=== PATIENT | female | born 2000 | race Caucasian/White ===

== ENCOUNTER 2022-03-28 14:21 | Emergency (ER) | payer MEDICAID, SELFPAY ==
[2022-03-28 15:04] VITALS: BP 121/78; PULSE 82; RESP 19; TEMP 36.6; O2SAT 98; BMI 20.9
--- NOTE | 2022-03-28 15:41 | ED_ITS ---
HPI - Eye Problem General: Chief complaint: Eye Problems Stated complaint: eye irritation Time Seen by Provider: 03/28/22 15:13 History of Present Illness: Patient is a 22-year-old female comes to the ED with eye irritation. 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 She does not wear contacts and had some blue eye colored contacts at home that she used in her eyes for Halloween. She wore them for several hours last night. She did not use any contact lens cleaning solution on contacts before putting them in. Her eyes started getting red and hurting and she removed contacts from eyes. She now has right eye pain, redness and states that she is having some drainage out of her right eye. Right eye hurts more than her left eye. She rates her pain currently 9 out of 10. Eye pain worsens with light. Denies any vision changes. Patient does not wear any contacts or glasses. Associated symptoms: Denies fever(s), headache(s), nausea, neck pain or vomiting Review of Systems Const: Denies: fever(s), chills or fatigue Eyes: Reports: photophobia, eye discomfort (Both eyes), eye discharge (Both eyes) and eye redness (Both eyes); Denies: change in vision ENMT: Denies: throat pain, odynophagia, nasal discharge or nasal congestion Card: Denies: chest pain, palpitations, edema, swelling of feet/ankles, dyspnea on exertion or orthopnea Resp: Denies: dyspnea, productive cough or non-productive cough GI: Denies: abdominal pain, nausea, vomiting, diarrhea, constipation or hematochezia : Denies: flank pain, dysuria or hematuria Musc: Denies: neck pain, back pain or extremity swelling Skin/Breast: Denies: rash or new lesions Neuro: Denies: headache(s), numbness in extremities or weakness in extremities PFS ED PFSH: Medical History No pertinent family history Surgical History No pertinent past surgical history Social History Smoking and tobacco status: current every day smoker Physical Exam Const: COMMON NORMALS: patient oriented x3 and alert GENERAL APPEARANCE: cooperative HENMT: COMMON NORMALS: normocephalic HEAD & SCALP: normocephalic MOUTH: Normal oral and palatal mucosa present THROAT: posterior oropharynx normal and uvula midline Eye: COMMON NORMALS: Equal, round and reactive pupils present CONJUNCTIVA: Yes conjunctival abnormal positive bilateral conjunctival injection diffuse PUPIL: Yes Equal, round and reactive pupils present Neck/C-Spine: COMMON NORMALS: supple GENERAL: Yes normal visual inspection Resp: COMMON NORMALS: normal respiratory effort, No retractions, No use of accessory muscles and clear to auscultation bilaterally AUSCULTATION: clear to auscultation bilaterally Cardio: COMMON NORMALS: regular rate, regular rhythm, S1 normal heart sound present, S2 normal heart sound present, No gallops present (Cardio), No clicks present (Cardio), No murmurs present (Cardio) and Peripheral pulses 2+ throughout RATE: regular rate RHYTHM: regular rhythm HEART SOUNDS: S1 normal heart sound present and S2 normal heart sound present PERIPHERAL PULSES: Peripheral pulses 2+ throughout GI: COMMON NORMALS: Normal to inspection, nondistended, normoactive bowel sounds present, Soft to palpation, non-tender and no masses PALPATION: Yes Soft to palpation : COMMON NORMALS: Yes no CVA tenderness BLADDER/KIDNEY EXAM: Yes no CVA tenderness Back/Pelvis: COMMON NORMALS: no CVA tenderness Extremity: COMMON NORMALS: normal to inspection Neuro: COMMON NORMALS: patient oriented x3 SENSORIUM/ORIENTATION: Yes alert GAIT: Yes Normal gait present Skin: GENERAL SKIN EXAM: dry skin Course Vital Signs: Vital signs: Vital Signs Temperature 97.8 F 03/28/22 16:46 Pulse Rate 72 03/28/22 16:46 Respiratory Rate 16 03/28/22 16:46 Blood Pressure 103/66 03/28/22 16:46 Pulse Oximetry 97 03/28/22 16:46 Oxygen Delivery Me thod 03/28/22 15:04 MDM - Eye Problem Medical Decision Making Patient is a 22-year-old female who has conjunctivitis. She was given a dose of Maxitrol eyedrops discharged home with a prescription for Maxitrol eyedrops. She was given [facility] contact information told to follow-up with them in the next 48 hours for reevaluation. She is given strict return to ED precautions. Patient understood and agreed with plan. Discharge Plan Discharge Patient Disposition: Home Clinical Impression: Acute bacterial conjunctivitis Qualifiers: Laterality: right Qualified Code(s): H10.31 - Unspecified acute conjunctivitis, right eye Condition: Stable Prescriptions: New Maxitrol 3.5mg/mL-10,000 unit/mL-0.1 % drops,suspension 1 drp ophthalmic (eye) Q6H 7 Days Qty: 5 0RF Rx Instructions: 1 drop in right eye 4 times daily for the next 7 days. No Action valacyclovir 500 mg tablet See Rx Instructions .ROUTE .COMPLEX Qty: 10 0RF Dose Instruction: Take 1 tablet by mouth twice daily for 5 days Rx Instructions: Take 1 tablet by mouth twice daily for 5 days Discharge Orders: Discharge ED (Routine); Ordered 03/28/22 Ordered By: Oumar Fowler Discharge Diet: Regular Discharge Activity: Increase activity as tolerated Patient Instructions: Infectious Conjunctivitis - Adult, Conjunctivitis (ED) Activity Restrictions/Additional Instructions: Follow-up with medical provider as directed. Call [facility] tomorrow morning to set up an appointment with them within the next 2-3 days. phone number is [phone]. Address is [facility] [address] Leo. take medications as prescribed. Return to the ER or your medical provider if condition worsens in the next 48 hours. Please read and understand discharge instructions. If any questions, please ask. Coding Level of Care Code ED Lab Rn for Jayesh Fwjosue Exam Comprehensive
[2022-03-28] MEDS: HYDROcodone-acetaminophen 7.5-325 mg Tablet 1 TAB PO (15:47)
[2022-03-28] MEDS: neomycin-poly-dex Op 5 mL Btl 2 DROP EYE-BOTH (15:53)
[2022-03-28 16:46] VITALS: BP 103/66; PULSE 72; RESP 16; TEMP 36.6; O2SAT 97
== END 2022-03-28 16:57 | disposition home or self-care (01) ==
PROVIDERS: Emergency Provider Physician Assistant
DX: H10.31 Unspecified acute conjunctivitis, right eye (principal); F17.210 Nicotine dependence, cigarettes, uncomplicated
CPT/HCPCS: 99283

== ENCOUNTER 2022-09-11 13:58 | Emergency (ER) | payer MEDICAID, SELFPAY ==
[2022-09-11 14:06] VITALS: BP 126/78; PULSE 61; RESP 18; TEMP 36.6; O2SAT 99; BMI 20.9
--- NOTE | 2022-09-11 15:27 | ED_ITS ---
HPI - Female Genitourinary General: Chief complaint: Urogenital-Female Stated complaint: possibly , cramping and bleeding Time Seen by Provider: 09/11/22 14:53 Source: patient Mode of arrival: ambulatory Limitations: no limitations History of Present Illness: Patient is a 22-year-old female presents to ED today for evaluation of vaginal bleeding and pelvic cramping. Patient states she normally has irregular menstrual cycles. She states her last menstrual cycle was 4/2 and describes it as very light . She states she woke up this morning and her sheets were covered in blood. She states during her menstrual cycle she normally has what she describes as back cramps but is now having more pelvic cramps. She states bleeding upon arrival to the ED has already lightened quite a bit. She states she was slightly concerned because she states there was a chance of . Patient is not having any urinary symptoms. Denies lightheadedness, dizziness, passing out episodes. No fevers. MD elicited complaint: vaginal bleeding Onset (ago): hour(s) Severity: moderate Quality of pain: cramping Vaginal discharge: none Vaginal bleeding: moderate Exacerbating factors: none Relieving factors: none Associated symptoms: Reports abdominal pain (pelvic pain); Deny headache(s), nausea or vaginal discharge Sexual activity: Yes Possible : unsure if Date of Last Menstrual Period: 08/27/22 Review of Systems Const: Denies: fever(s), chills, body aches, fatigue or malaise Card: Denies: chest pain Resp: Denies: dyspnea GI: Reports: abdominal pain (pelvic pain); Denies: nausea, vomiting, diarrhea or change in bowel habits : Reports: vaginal bleeding, metrorrhagia and pelvic pain; Denies: flank pain, difficulty voiding, dysuria, urinary frequency, urinary urgency, hematuria, vaginal odor or vaginal discharge Musc: Denies: neck pain, back pain, extremity pain or joint pain Skin/Breast: Denies: rash Neuro: Denies: headache(s), numbness in extremities, weakness in extremities, sensory changes or dizziness COUNTS INCLUDE 234 BEDS AT THE [facility] ED PFSH: Medical History No pertinent family history Surgical History No pertinent past surgical history Social History Smoking and tobacco status: current every day smoker Female Reproductive History: Date of last menstrual period: 08/27/22 Physical Exam Const: COMMON NORMALS: no acute distress, average body habitus, patient oriented x3, no limitations, healthy appearing, alert and well nourished Resp: COMMON NORMALS: normal respiratory effort and clear to auscultation bilaterally AUSCULTATION: clear to auscultation bilaterally Cardio: COMMON NORMALS: regular rate and regular rhythm RATE: regular rate RHYTHM: regular rhythm GI: COMMON NORMALS: Normal to inspection, nondistended, normoactive bowel sounds present, Soft to palpation, No hepatosplenomegaly present and no masses INSPECTION: Yes normal to inspection AUSCULTATION: Yes normoactive bowel sounds PALPATION: Yes Soft to palpation, Yes Tenderness to palpation present (GI) (low mid abdomen/pelvis; non-surgical exam), No Guarding due to palpation present (GI), No Rigid due to palpation and Yes No hepatosplenomegaly present : COMMON NORMALS: Yes no CVA tenderness BLADDER/KIDNEY EXAM: Yes no CVA tenderness BIMANUAL EXAM - VAGINA & UTERUS: Yes other (deferred) BIMANUAL EXAM - ADNEXA, OTHER: Yes Other (deferred) Back/Pelvis: COMMON NORMALS: no CVA tenderness Neuro: [place] COMA SCALE: document GCS findings [place] coma scale eye opening: Spontaneous [place] coma scale verbal response: Orientated [place] coma scale motor response: Obey commands [place] coma scale total score: 15 COMMON NORMALS: patient oriented x3 SENSORIUM/ORIENTATION: Yes alert Course Vital Signs: Vital signs: Vital Signs Temperature 97.8 F 09/11/22 14:06 Pulse Rate 61 09/11/22 14:06 Respiratory Rate 18 09/11/22 14:06 Blood Pressure 126/78 09/11/22 14:06 Pulse Oximetry 99 09/11/22 14:06 Oxygen Delivery Me thod Room Air 09/11/22 14:06 MDM - Female Medical Decision Making Patient appears in no acute distress. Her vital signs are appropriate. Bleeding according to patient has already improved upon arrival to the ED. She declines pelvic exam. Blood work overall is unremarkable. I visualized patient's UA and it is grossly contaminated with blood therefore her UA is noncontributory. She has no complaints of dysuria, frequency, urgency. test was negative. At this point patient's symptoms most likely related to menstrual cycle/menstrual cramping. Recommend she keep a close observation on her symptoms over the next 1 to 2 days. Strict return ED precautions given. Lab Data 09/11/22 15:30 09/11/22 15:30 Laboratory Results WBC 11.5 10^3/uL (4.5-13.0) 09/11/22 15:30 RBC 4.86 10^6/uL (4.1-5.3) 09/11/22 15:30 Hgb 14.9 g/dL (11.5-15.3) 09/11/22 15: Hct 44.5 % (37.0-47.0) 09/11/22 15: MCV 91.6 fl (81-99) 09/11/22 15:30 MCH 30.7 pg (28.0-34.0) 09/11/22 15: MCHC 33.5 g/dL (30.0-36.0) 09/11/22 15: RDW 12.4 % (12.1-15.1) 09/11/22 15: Plt Count 274 10^3/cmm (130-400) 09/11/22 15: MPV 11.2 fL (7.4-10.4) H 09/11/22 15:30 Neut % (Auto) 67.6 % 09/11/22 15: Lymph % (Auto) 23.6 % 09/11/22:30 [place] % (Auto) 6.5 % 09/11/22 15: Eos % (Auto) 1.7 % 09/11/22 15: Baso % (Auto) 0.3 % 09/11/22 15:30 Neut # (Auto) 7.77 10^3/uL (1.8-8.0) 09/11/22 15:30 Lymph # (Auto) 2.7 10^3/uL (1.5-6.5) 09/11/22 15:30 [place] # (Auto) 0.8 10^3/uL (0.2-0.9) 09/11/22 15:30 Eos # (Auto) 0.2 10^3/uL (0.0-0.8) 09/11/22 15:30 Baso # (Auto) 0.0 10^3/uL (0.0-0.1) 09/11/22 15:30 Nucleated RBC % (auto) 0 % 09/11/22 15:30 Nucleated RBCs # 0.0 /100WBC 09/11/22 15:30 Sodium 135 mmol/L (136-145) L 09/11/22 15:30 Potassium 3.8 mmol/L (3.5-5.1) 09/11/22 15:30 Chloride 100 mmol/L (98-107) 09/11/22 15:30 Carbon Dioxide 24 mmol/L (22-29) 09/11/22 15:30 Anion Gap 14.8 (5-19) 09/11/22 15:30 BUN 8 mg/dL (6-20) 09/11/22 15:30 Creatinine 0.6 mg/dL (0.5-0.9) 09/11/22 15:30 GFR Calculation 127.5 mL/min (90-130) 09/11/22 15:30 Glucose 93 mg/dL (65-115) 09/11/22 15:30 Calculated Osmolality 278 mOsm/kg (285-295) L 09/11/22 15:30 Calcium 9.1 mg/dL (8.5-10.5) 09/11/22 15:30 Total Bilirubin 0.4 mg/dL (0.15-1.2) 09/11/22 15:30 AST 13 U/L (0-32) 09/11/22 15:30 ALT 9 U/L (0-33) 09/11/22 15:30 Alkaline Phosphatase 59 U/L (35-105) 09/11/22 15:30 Total Protein 7.1 g/dL (6.6-8.7) 09/11/22 15:30 Albumin 4.3 g/dL (3.5-5.2) 09/11/22 15:30 Globulin 2.8 g/dL (1.3-4.6) 09/11/22 15:30 HCG, Qual Negative (Negative) 09/11/22 15:30 Ser , Semi-Qnt 1.00 mIU/mL 09/11/22 15:30 Urine Color [place] (Yellow) 09/11/22 15: Urine Appearance Sl hazy (CLEAR) A 09/11/22 15: Urine pH 8 (5-7) H 09/11/22 15:29 Ur Specific [place] 1.010 (1.005-1.030) 09/11/22 15:29 Urine Protein Neg (Negative) 09/11/22 15:29 Urine Glucose (UA) Norm (Normal) 09/11/22 15: Urine Ketones 1+ (Negative) H 09/11/22 15: Urine Blood 3+ (Negative) H 09/11/22 15: Urine Nitrate Negative (Negative) 09/11/22 15: Urine Bilirubin Neg (Negative) 09/11/22 15: Urine Urobilinogen Norm mg/dL (Negative) 09/11/22 15: Ur Leukocyte Esterase Trace (Negative) H 09/11/22 15:29 Urine RBC 25-40 /hpf (0-2) H 09/11/22 15: Urine WBC 5-10 /hpf (0-5) H 09/11/22 15: Ur Squamous Epith Cells 5-10 /hpf (0-5) H 09/11/22 15: Amorphous Sediment Not Reportable 09/11/22 15: Urine Bacteria 2+ /hpf (NONE) H 09/11/22 15:29 Discharge Plan Discharge Patient Disposition: Home Clinical Impression: Menstrual cramps Condition: Stable Prescriptions: No Action valacyclovir 500 mg tablet See Rx Instructions .ROUTE .COMPLEX Qty: 10 0RF Dose Instruction: Take 1 tablet by mouth twice daily for 5 days Rx Instructions: Take 1 tablet by mouth twice daily for 5 days Discharge Orders: Discharge ED (Routine); Ordered 09/11/22 Ordered By: Shanell Pretty Activity Restrictions/Additional Instructions: As we discussed monitor symptoms closely over the next 24 to 48 hours. You may return to the emergency department for worsening abdominal/pelvic pain or cramping, severe worsening vaginal bleeding, painful urination, flank pain, fevers, repetitive episodes of vomiting or diarrhea, generally feeling worse or unwell, or any other concerns you may have. Coding Level of Care Code ED 3D Specialist for Jayesh Gerard
[2022-09-11 15:45] LABS: Basophils % 0.3 %; Eosinophils # 0.2 10^3/uL (0.0-0.8); Eosinophils % 1.7 %; Hematocrit 44.5 % (37.0-47.0); Hemoglobin 14.9 g/dL (11.5-15.3); Lymphocytes # 2.7 10^3/uL (1.5-6.5); Lymphocytes % 23.6 %; Mean Corpuscular HGB Conc 33.5 g/dL (30.0-36.0); Mean Corpuscular Hemoglobin 30.7 pg (28.0-34.0); Mean Corpuscular Volume 91.6 fl (81-99); Mean Platelet Volume 11.2 fL (7.4-10.4); Monocytes # 0.8 10^3/uL (0.2-0.9); Monocytes % 6.5 %; Neutrophils # 7.77 10^3/uL (1.8-8.0); Neutrophils % 67.6 %; Nucleated Red Blood Cells % 0 %; Platelet Count 274 10^3/cmm (130-400); Red Blood Count 4.86 10^6/uL (4.1-5.3); Red Cell Distribution Width 12.4 % (12.1-15.1); White Blood Count 11.5 10^3/uL (4.5-13.0)
[2022-09-11 16:00] LABS: HCG Qualitative Urine. Negative (Negative)
[2022-09-11 16:05] LABS: Add Urine Microscopic? YES; Bilirubin Urine Neg (Negative); Blood Urine 3+ (Negative); Glucose Urine UA Norm (Normal); Ketones Urine 1+ (Negative); Leukocyte Esterase Urine Trace (Negative); Nitrate Urine Negative (Negative); Protein Urine Neg (Negative); RBC Urine 25-40 /hpf (0-2); Urine Appearance SL Hazy (CLEAR); Urine Color Orange (Yellow); Urobilinogen Urine Norm (Negative); pH Urine 8 (5-7)
[2022-09-11 16:06] LABS: Add Urine Culture? Yes; Bacteria Urine 2+ /hpf
[2022-09-11 16:13] LABS: Alanine Aminotransferase 9 U/L (0-33); Albumin Level 4.3 g/dL (3.5-5.2); Alkaline Phosphatase 59 U/L (35-105); Anion Gap 14.8 (5-19); Aspartate Amino Transferase 13 U/L (0-32); Blood Urea Nitrogen 8 mg/dL (6-20); Calcium 9.1 mg/dL (8.5-10.5); Carbon Dioxide 24 mmol/L (22-29); Chloride 100 mmol/L (98-107); Globulin 2.8 g/dL (1.3-4.6); Glomerular Filtration Rate 127.5 mL/min (90-130); Glucose 93 mg/dL (65-115); Osmolality Calculated 278 mOsm/kg (285-295); Potassium 3.8 mmol/L (3.5-5.1); Sodium 135 mmol/L (136-145); Total Bilirubin 0.4 mg/dL (0.15-1.2); Total Protein 7.1 g/dL (6.6-8.7)
--- NOTE | 2022-09-15 10:59 | DCPLANNER ---
storage manager called patient due to no primary care physician - no answer at this time.
== END 2022-09-11 16:31 | disposition home or self-care (01) ==
PROVIDERS: Emergency Provider Physician Assistant
DX: N94.6 Dysmenorrhea, unspecified (principal); F17.210 Nicotine dependence, cigarettes, uncomplicated
CPT/HCPCS: 36415; 80053; 81001; 81025; 84702; 85025; 87086; 99283

== ENCOUNTER 2022-12-27 14:33 | Outpatient (CLI) | payer MEDICAID, SELFPAY ==
[2022-12-27 14:58] LABS: HCG Quantitative 12.33 mIU/mL
== END 2022-12-27 14:34 | disposition home or self-care (01) ==
LOC: LAB 14:35
PROVIDERS: Visit Provider Family Medicine
DX: O20.9 Hemorrhage in early pregnancy, unspecified (principal); Z3A.00 Weeks of gestation of pregnancy not specified
CPT/HCPCS: 84702

== ENCOUNTER 2023-05-01 14:05 | Outpatient (CLI) | payer MEDICAID, SELFPAY | END 2023-05-01 14:06 | disposition home or self-care (01) | PROVIDERS: Visit Provider Family Medicine | DX: Z01.812 Encounter for preprocedural laboratory examination (principal) | CPT/HCPCS: 84702 ==

== ENCOUNTER 2023-10-25 06:15 | Outpatient (CLI) | payer MEDICAID, SELFPAY ==
[2023-10-25 06:15] VITALS: BMI 25.6
[2023-10-25 08:16] VITALS: BP 103/67; PULSE 74; RESP 16; TEMP 36.6
== END 2023-10-25 08:16 | disposition home or self-care (01) ==
LOC: OPOB 06:31 → OBGYN 06:34
PROVIDERS: PCP Family Medicine; Visit Provider Family Medicine
DX: O36.8190 Decreased fetal movements, unspecified trimester, not applicable or unspecified (principal); Z3A.00 Weeks of gestation of pregnancy not specified
CPT/HCPCS: 59025; 99211

== ENCOUNTER 2023-12-13 13:20 | Outpatient (CLI) | payer MEDICAID, SELFPAY ==
[2023-12-13 13:30] VITALS: BMI 26.6
[2023-12-13 13:36] VITALS: BP 140/93; PULSE 78
== END 2023-12-13 14:28 | disposition home or self-care (01) ==
LOC: OPOB 13:23 → OBGYN 13:24
PROVIDERS: PCP Family Medicine; Visit Provider Family Medicine
DX: O36.8190 Decreased fetal movements, unspecified trimester, not applicable or unspecified (principal); Z3A.00 Weeks of gestation of pregnancy not specified
CPT/HCPCS: 59025; 99211

== ENCOUNTER 2023-12-29 13:23 | Inpatient (IN) | payer MEDICAID, SELFPAY ==
[2023-12-29] VITALS (64 sets, daily range): BP systolic 101–135; BP diastolic 65–85; PULSE 54–94; RESP 17–18; TEMP 35.7–36.6; O2SAT 89–100; BMI 26.9
[2023-12-29 11:51] LABS: Actim Prom Positive
[2023-12-29 12:03] LABS: Amphetamines Screen Urine Negative (Negative); Barbiturates Screen Urine Negative (Negative); Benzodiazepines Screen Urine Negative (Negative); Cocaine Screen Urine Negative (Negative); Opiate Screen Urine Negative (Negative); PCP Screen Urine Negative (Negative); THC Screen Urine Positive (Negative)
[2023-12-29 13:18] LABS: Basophils % 0.3 %; Eosinophils # 0.1 10^3/uL (0.0-0.8); Eosinophils % 1.2 %; Hematocrit 41.8 % (36-47); Lymphocytes # 2.5 10^3/uL (0.8-4.8); Lymphocytes % 20.9 %; Mean Corpuscular HGB Conc 34.7 g/dL (30-55); Mean Corpuscular Hemoglobin 30.9 pg (27-33); Mean Corpuscular Volume 89.1 fl (85-98); Mean Platelet Volume 12.9 fL (7.4-10.4); Monocytes # 0.9 10^3/uL (0.2-0.9); Monocytes % 7.1 %; Neutrophils # 8.39 10^3/uL (1.8-7.7); Neutrophils % 69.8 %; Nucleated Red Blood Cells % 0 %; Platelet Count 145 10^3/cmm (157-399); Red Blood Count 4.69 10^6/uL (3.85-5.65); Red Cell Distribution Width 12.7 % (12.1-15.1); White Blood Count 12.03 10^3/uL (3.29-11.43)
[2023-12-29] MEDS: dextrose 5%-lactated ringers 1,000 ML 125 ML IV ×2 (14:15→19:21)
[2023-12-29] MEDS: oxytocin 30 UNIT/500 ML BAG IV (14:15)
[2023-12-29] MEDS: ondansetron 2 mg/ML SDV 2 mL 4 MG IVP (14:49)
[2023-12-29] MEDS: fentaNYL 50 mcg/mL INJ 2mL IVP (17:51)
[2023-12-29] MEDS: lactated ringers 1,000 ML 999 ML IV (18:14)
[2023-12-29] MEDS: ROPivacaine syringe 100 MG/50 ML SYRINGE 10 MG EPIDURAL ×2 (19:00→22:00)
--- NOTE | 2023-12-29 19:05 | ANES.PROC ---
Anesthesia Procedures Procedure/Date: 12/29/23 Epidural: Time Out Performed: Yes Consents Signed: Procedure Consent Consent: requested by attending/covering physician, from patient, from other, risks and benefits reviewed and patient agrees to proceed Lumbar Level: L3-L4 Epidural position: sitting Epidural procedure: sterile prep of area, 1% lidocaine to numb the area, 18 g needle, negative for paresthesia passed, neg for paresthesia, test dose given, 1.5% xylocaine 1:200k epi (5), 0.2% Ropivacaine bolus ml (5), placed PCEA, no systemic response, sterile dressing applied, L.U.D. no apparent complications and 0.2% Ropiavacaine @ mls/hr (10) Additional Comments: Upon sitting patient up for positioning became apparent that patient has generalized acne over her back. Many of the lesions were actually postinflammatory hyperpigmentation and there were no large cystic lesions noted, no purulent drainage noted from any lesions. I did discuss with patient that this could place her at higher risk of infection/epidural abscess. Patient desired to proceed with epidural. An area on the lumbar spine was chosen where the insertion site was approximately at least 4 cm from any palpable lesions and marked. The back was cleaned with chloraprep 4x. PARI at 6 cm, threaded to 11.5 cm. Patient denoted pain of subsequent contraction significantly improved down from 9 to a 5 and then even further improvement with the next contraction.
[2023-12-30] VITALS (19 sets, daily range): BP systolic 100–140; BP diastolic 53–80; PULSE 59–92; RESP 16–17; TEMP 36.4–36.6; O2SAT 94–97; BMI 26.9
--- NOTE | 2023-12-30 00:50 | PM.OPHPUD ---
Labor & Delivery H&P Update Date of Procedure: December 30, 2023 Date H&P Performed: 12/27/23 Admission Diagnosis: IUP at 39 weeks 5 days gestation Spontaneous rupture of membranes Planned procedure: Induction of labor and delivery
--- NOTE | 2023-12-30 00:50 | PM.DELIVERY ---
Delivery Note: Date of delivery: December 30, 2023 Estimated blood loss (mL): 100 Pre-Delivery Course: The patient had routine care at [facility] she was blood type a positive antibody negative, hepatitis B nonreactive, hepatitis C nonreactive, HIV nonreactive, rubella immune, GC chlamydia negative, RPR nonreactive, UDS positive for marijuana, Q deepthi low risk, she passed her glucose tolerance test, she was GBS negative. Delivery: This is a 23-year-old G1, P0 at 39 weeks 5 days gestation who presented to labor and delivery complaining of leaking of fluid. She told me that the leaking started last evening, approximately 14 hours prior to admission. She was nitrazine inconclusive actimPROM positive. She was jagruti about every 3 minutes but they were not very painful. She was admitted for induction of labor and delivery. She was GBS negative. She was started on high-dose Pitocin and received an epidural for pain management. She only had to push through 6 contractions and had a normal spontaneous vaginal delivery of a viable male infant weight 3350 g, 7 pounds 6 ounces, Apgars 9 and 9 over an intact perineum. The was suctioned at delivery and placed on the mother's chest. The cord was clamped and cut. The placenta was delivered grossly intact and normal to inspection. There were no vaginal lacerations. Mother and were doing well after delivery. Rupture of membranes was approximately 26 to 28 hours prior to delivery. Coding Level of Care Code Acute Code for Chg Fwd
[2023-12-30] MEDS: ibuprofen 800 mg tablet PO ×3 (08:52→20:24)
[2023-12-30] MEDS: docusate sodium 100 mg Capsule PO ×2 (08:52→20:24)
[2023-12-30] MEDS: PRENATAL VIT NO.130/IRON/FOLIC 1 EACH TABLET PO (08:52)
[2023-12-30 12:26] LABS: Hematocrit 36.6 % (36-47); Mean Corpuscular HGB Conc 34.4 g/dL (30-55); Mean Corpuscular Hemoglobin 31.2 pg (27-33); Mean Corpuscular Volume 90.6 fl (85-98); Mean Platelet Volume 13.1 fL (7.4-10.4); Platelet Count 141 10^3/cmm (157-399); Red Blood Count 4.04 10^6/uL (3.85-5.65); Red Cell Distribution Width 12.9 % (12.1-15.1); White Blood Count 15.22 10^3/uL (3.29-11.43)
[2023-12-31 04:23] VITALS: BP 116/77; PULSE 69; RESP 16; TEMP 36.7; O2SAT 97
--- NOTE | 2023-12-31 06:16 | PC.NURSE ---
Attempted to return baby to room with parents. parents asleep together in moms bed. there was a strong aroma of marijuana in the room. RN called mother by name in attempt to wake her, mother easily awoken. RN advised returning baby to room, asked mother if she was ready for baby, who was sleeping peacefully. mother grunted uh huh. RN asked clarifying question do you want us to continue to watch baby while you sleep? mother nodded, turned over and closed her eyes. Baby remains at nurses station, snuggling [id number] [id number].
--- NOTE | 2023-12-31 08:39 | ANE.PACU2 ---
Inpatient post-anesthesia follow up: Airway intact: Yes Vital signs: Temperature 98.0 F Pulse Rate 69 Respiratory Rate 16 Blood Pressure 116/77 Pulse Oximetry 97 Oxygen Delivery Me thod Room Air Oxygen Flow Rate Fraction of Inspir ed Oxygen Hydration adequate: Yes Nausea and vomiting: No Pain level: 2 Mental status: Baseline Epidural Start/End: Epidural Start Date: 12/29/23 Epidural Start Time: 18:38 Epidural End Date: 12/30/23 Epidural End Time: 02:00
[2023-12-31] MEDS: docusate sodium 100 mg Capsule PO (09:50)
[2023-12-31] MEDS: ibuprofen 800 mg tablet PO ×2 (09:50→15:23)
[2023-12-31] MEDS: PRENATAL VIT NO.130/IRON/FOLIC 1 EACH TABLET PO (09:50)
[2023-12-31 10:00] VITALS: BP 118/76; PULSE 76; RESP 18; TEMP 37.1; O2SAT 98
[2023-12-31] MEDS: simethicone 80 mg Chew PO (10:56)
[2023-12-31 16:00] VITALS: BP 116/75; PULSE 71; RESP 16; TEMP 36.8
--- NOTE | 2023-12-31 16:00 | PM.DCS ---
Discharge Providers Date of Admission: 12/29/23 13:23 Date of Discharge: December 31, 2023 Attending Provider at Admission: Lexy Yin MD Attending Provider at Discharge: Lexy Yin MD Primary Care Provider: Lexy Yin MD Reason for Visit Reason for Visit: possible ROM Hospital Course Hospital Course This is a 23-year-old G1 now P1 who was admitted for induction and delivery after presenting to labor and delivery with spontaneous rupture of membranes at 39 weeks 5 days gestation. Patient had a normal spontaneous vaginal delivery of a viable male . Mother was doing well after delivery. She was ambulating, tolerating a regular diet, had decreased vaginal bleeding. DFS was involved secondary to maternal marijuana use. Physical Exam Narrative: Alert and oriented, sitting up in bed, heart regular rate and rhythm, lungs clear to auscultation bilaterally, abdomen is soft and nontender, fundus is firm, extremities have no calf tenderness and no edema Urinary Catheter Management: Ascencio: Cath Placed During This Visit: yes Urinary Catheter Date of Insertion: 12/29/23 Urinary Catheter Time of Insertion: 19:50 Discharge Data Studies Completed and Pending Laboratory Results WBC 15.22 10^3/uL (3.29-11.43) H 12/30/23 12:16 RBC 4.04 10^6/uL (3.85-5.65) 12/30/23 12:16 Hgb 12.60 g/dL (11.27-16.99) 12/30/23 12:16 Hct 36.6 % (36-47) 12/30/23 12:16 MCV 90.6 fl (85-98) 12/30/23 12:16 MCH 31.2 pg (27-33) 12/30/23 12:16 MCHC 34.4 g/dL (30-55) 12/30/23 12:16 RDW 12.9 % (12.1-15.1) 12/30/23 12:16 Plt Count 141 10^3/cmm (157-399) L 12/30/23 12:16 MPV 13.1 fL (7.4-10.4) H 12/30/23 12:16 Neut % (Auto) 69.8 % 12/29/23 12:55 Lymph % (Auto) 20.9 % 12/29/23 12:55 [place] % (Auto) 7.1 % 12/29/23 12:55 Eos % (Auto) 1.2 % 12/29/23 12:55 Baso % (Auto) 0.3 % 12/29/23 12:55 Neut # (Auto) 8.39 10^3/uL (1.8-7.7) H 12/29/23 12:55 Lymph # (Auto) 2.5 10^3/uL (0.8-4.8) 12/29/23 12:55 [place] # (Auto) 0.9 10^3/uL (0.2-0.9) 12/29/23 12:55 Eos # (Auto) 0.1 10^3/uL (0.0-0.8) 12/29/23 12:55 Baso # (Auto) 0.0 10^3/uL (0.0-0.1) 12/29/23 12:55 Nucleated RBC % (auto) 0 % 12/29/23 12:55 Nucleated RBCs # 0.0 /100WBC 12/29/23 12:55 Insulin-like GF I Positive 12/29/23 11:30 Urine Opiates Screen Negative ng/mL (Negative) 12/29/23 11:00 Ur Barbiturates Screen Negative ng/mL (Negative) 12/29/23 11:00 Ur Phencyclidine Scrn Negative ng/mL (Negative) 12/29/23 11:00 Ur Amphetamines Screen Negative ng/mL (Negative) 12/29/23 11:00 U Benzodiazepines Scrn Negative ng/mL (Negative) 12/29/23 11:00 Urine Cocaine Screen Negative ng/mL (Negative) 12/29/23 11:00 U Marijuana (THC) Screen Positive ng/mL (Negative) H 12/29/23 11:00 Blood Type A Positive 12/29/23 12:55 Rho(D) Type Rh positive 12/29/23 12:55 Antibody Screen Negative 12/29/23 12:55 Vitals Last Vital Signs Temp 98.7 F 12/31/23 10:00 Pulse 76 12/31/23 10:00 Resp 18 12/31/23 10:00 BP 118/76 12/31/23 10:00 Pulse Ox 98 12/31/23 10:00 O2 Del Method Room Air 12/31/23 10:00 Discharge Plan Discharge Patient Disposition: Home Condition: Stable Prescriptions: Continued vit-iron fum-folic ac 65 mg iron- 1 mg Tablet 1 tab PO 1XD Discharge Orders: Discharge Order (Routine); Ordered 12/31/23 Ordered By: Lexy Yin Referrals: Lexy Yin MD [Primary Care Provider] - 1 month Discharge Diet: Usual diet Discharge Activity: Limit activity as instructed Patient Instructions: Depression (DC), Preeclampsia and Eclampsia After Delivery (GEN), Hemorrhage (DC), OB Discharge Report, OB Food/Drug Interaction Guide, Opioid Safety, OB Home Care, OB Vaginal Deliveries, Abnormal Bleeding Activity Restrictions/Additional Instructions: Nothing per vagina for 6 weeks Discharge Attestations Time Spent in Discharge Care*: less than 30 min Quality Metrics Clinical Quality Measures [ No reported AMI, CVA or VTE this stay] Coding Level of Care Code Acute Code for Chg Fwjosue
[2023-12-31 19:55] VITALS: BP 113/74; PULSE 77; RESP 16; TEMP 36.6; O2SAT 98
== END 2023-12-31 19:58 | disposition home or self-care (01) | DRG 806 ==
LOC: OPOB 13:23 → OBGYN 13:23
PROVIDERS: Admitting Provider Family Medicine; PCP Family Medicine; Visit Provider Family Medicine
DX: O42.02 Full-term premature rupture of membranes, onset of labor within 24 hours of rupture (principal); O99.324 Drug use complicating childbirth; Z37.0 Single live birth; F12.90 Cannabis use, unspecified, uncomplicated; Z3A.39 39 weeks gestation of pregnancy
CPT/HCPCS: 36415; 51702; 59025; 59409; 80306; 83986; 84112; 85025; 85027; 86850; 86900; 96374; 99211; J2405; J2590; J2795; J3010; J7120; J7121